=== PATIENT | male | born 1960 | race Caucasian/White ===

== ENCOUNTER 2023-10-21 09:07 | Observation (INO) ==
--- NOTE | 2023-10-21 09:49 | Emergency Department Note ---
History of Present Illness General Chief complaint: Back Injury/Pain Stated complaint: BACK PAIN Time Seen by Provider: 10/21/23 09:21 History of Present Illness Maximum Pain Intensity: 9 This is a 63-year-old male that presents to the emergency department via private vehicle with complaints of "right low back pain, spasms". 10 to 14 days ago he began with right-sided low back pain. Initially it was quite manageable. It does not radiate down the legs but he does note Patient notes chronic numbness/tingling in the lower extremities secondary to previous Achilles tendon surgery. He denies any known trauma or injury causing today's back pain. He does note that over the weekend he seemed well to manage his symptoms however he went to shower today and now the symptoms have been persistent and there is severe pain in the right low back area. The pain will escalate and come in waves but is always still present. The patient denies any fevers, chills or abdominal pain. No dysuria. No history of spine surgery. He does note history previously of spine injection about 15 years ago as performed in [facility]. He denies any known drug allergies. No lower extremity weakness, bowel or bladder incontinence, numbness or tingling in the genital region Home Medications Medication Instructions Recorded Confirmed Type cyclobenzaprine 5 mg tablet 5 - 10 mg (1 - 2 x 5 mg) PO HS #10 10/15/23 10/21/23 Rx tabs naproxen 500 mg tablet 500 mg PO BID PRN pain #14 tabs 10/15/23 10/21/23 Rx Allergies Allergy/AdvReac Type Severity Reaction Status Date / Time No Known Allergies Allergy Verified 10/21/23 09:53 Past Med/Surg History Problem List (Updated 10/21/23 @ 17:18 by Vik Thompson MD) Hepatic lesion Intractable back pain Elevated PSA Urinary frequency Anemia Medical History Spondylolisthesis Elevated PSA H/O sigmoidoscopy History of COVID-19 05/2021>RESOLVED Surgical History S/P Mohs surgery for basal cell carcinoma History of anesthesia reaction NERVE BLOCK DID NOT WORK FOR ACHILLES TENDON SURGERY History of arthroscopy LEFT KNEE H/O colonoscopy with polypectomy Hx of Achilles tendon repair RT History of prostate biopsy Family History Brother Skin cancer Colorectal cancer Father Skin cancer Lung cancer Mother Lung cancer Grandfather (Paternal) Lung cancer Other No family history of adverse response to anesthesia Denies family history of Ovarian cancer Prostate cancer Diabetes Myocardial infarction Breast cancer Stroke Social History Smoking Status: Never smoker Tobacco Type: Cigarettes Age Started Using Tobacco: 17; Age Quit Using Tobacco: 31; Second Hand Exposure: No ( A CHILD); Do You Dip or Chew Tobacco: No; Hx Alcohol Use: Yes Alcohol type: beer Alcohol Intake Frequency: 2-3 x/Week Hx Substance Use: No Preferred Language: Upper Sorbian Communication Ability: Effective Visual Impairment: Diminished Hearing Ability: Normal School Custodian Required: No Beliefs That Will Affect Care: None marital status: Current Living Situation: Spouse Current Living Situation Comment: spouse and son current occupational status: employed 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 How many Children do You have: 1 Feels Safe at Home: Yes Childhood Exposure to Second-Hand Smoke: Yes Diet: other Diet Comment: 16 and 8 Fasting caffeine: Yes Dental Care, Regularly: Yes Physical Activity Frequency: 5-6 Times per Week Physical Activity Frequency Comment: walk Seatbelt Use: always Sunscreen Use: Yes Assistive Devices: Glasses Review of Systems A total of 10 systems reviewed and were otherwise negative Physical Exam Vital Signs Vital Signs - 24 hr 10/21/23 09:17 10/21/23 10:05 10/21/23 10:11 Temperature 37.1 C Temperature Source Temporal Artery Scan Pulse Rate 63 60 58 L Pulse Rate [Apical] Pulse Rhythm Regular Respiratory Rate 18 16 Respiratory Effort / Characteristics Non-Labored Spontaneous Respiratory Depth Normal Blood Pressure 138/81 Blood Pressure [Left Arm] Blood Pressure Mean 100 Blood Pressure Mean [Left Arm] Blood Pressure Position Sitting Pulse Oximetry 98 99 Oxygen Delivery Method Room Air Room Air Sepsis Recent Fever Within 48 Hours No Sepsis New/Unexplained Change in Mental Status N/A Sepsis Action Taken by Nursing No Action Required 10/21/23 11:22 10/21/23 14:38 Temperature Temperature Source Pulse Rate Pulse Rate [Apical] 52 L 60 Pulse Rhythm Respiratory Rate 12 16 Respiratory Effort / Characteristics Respiratory Depth Blood Pressure Blood Pressure [Left Arm] 133/80 141/87 H Blood Pressure Mean Blood Pressure Mean [Left Arm] 97 105 Blood Pressure Position Pulse Oximetry 95 99 Oxygen Delivery Method Room Air Room Air Sepsis Recent Fever Within 48 Hours Sepsis New/Unexplained Change in Mental Status Sepsis Action Taken by Nursing VITAL SIGNS - Vital signs and nursing notes were reviewed. Stable and afebrile. GENERAL -63-year-old male appearing his stated age who is in no acute distress but appears to be in pain. Communicates well with provider and answers questions appropriately. SKIN - Without rashes. No meningeal or petechial rash. The skin overlying the L-spine area is unremarkable. No erythema or edema. No crepitus. HEAD - NC/AT. EYES - Sclera anicteric. NECK - Neck with FROM. No nuchal rigidity. LUNGS - CTA CARDIAC - RRR ABDOMEN - Abdominal contour normal without pulsations or visible masses. BS normoactive all four quadrants. No tenderness, palpable masses, hepatosplenomegaly, or ascites noted. MUSCULOSKELETALwithin normal limits bilateral patellar reflexes. Patient is able to push/pull against resistance with the lower extremities. Plantarflexion and dorsiflexion of bilateral ankles within normal limits actively. EXTREMITIES - No clubbing or peripheral cyanosis. +5/5 strength noted in UE/LE bilaterally. NEUROLOGIC - Cranial nerves grossly intact. PSYCH -alert, oriented and pleasant on exam. Pt is very pleasant and interacts well with examiner. Course Administered Medications Discontinued Medications Acetaminophen (Acetaminophen 500 Mg Tab) 1,000 mg PO NOW STA Stop: 10/21/23 14:25 Last Admin: 10/21/23 14:32 Dose: 1,000 mg Documented By: LA Dexamethasone (Dexamethasone Sod Inj 4 Mg/Ml Vial) 10 mg IV NOW STA Stop: 10/21/23 14:26 Last Admin: 10/21/23 14:33 Dose: Not Given Documented By: LA Diazepam (Diazepam 5 Mg/Ml 10ml Vial) 5 mg IV NOW STA Stop: 10/21/23 14:10 Last Admin: 10/21/23 15:06 Dose: 5 mg Documented By: LA Lidocaine (Lidocaine 5% 1 Patch) 1 patch TD NOW STA Stop: 10/21/23 09:48 Last Admin: 10/21/23 10:09 Dose: 1 patch Documented By: LA Morphine Sulfate (Morphine Sulfate 4 Mg/Ml 1 Ml Carp\\Vial) 4 mg IV NOW STA Stop: 10/21/23 09:48 Last Admin: 10/21/23 10:08 Dose: 4 mg Documented By: LA Morphine Sulfate (Morphine Sulfate 2 Mg/Ml Carp) 2 mg IV NOW STA Stop: 10/21/23 13:26 Last Admin: 10/21/23 13:33 Dose: 2 mg Documented By: LIZZIE Ondansetron HCl (Ondansetron Inj 2 Mg/Ml 2 Ml Vial) 4 mg IV NOW STA Stop: 10/21/23 09:48 Last Admin: 10/21/23 10:08 Dose: 4 mg Documented By: LA Medical Decision Making Laboratory Data 10/21/23 10:12 10/21/23 10:12 Lab Results 10/21/23 10/21/23 Range/Units 10:12 14:50 WBC 4.33 L (4.8-10.8) K/ul RBC 4.57 L (4.70-6.10) M/uL Hgb 14.0 (14.0-18.0) g/dl Hct 40.9 L (42.0-52.0) % MCV 89.5 (80.0-100.0) fL MCH 30.6 (25.0-34.0) pg MCHC 34.2 (32.0-36.0) g/dL RDW Std Deviation 43.6 (36.4-46.3) fL RDW Coeff of Elvira 13.2 (11.5-14.5) % Plt Count 171 (130-400) K/uL MPV 9.3 L (9.4-12.4) fL Immature Gran % (Auto) 0.0 % Neut % (Auto) 49.1 % Lymph % (Auto) 40.9 % [place] % (Auto) 8.3 % Eos % (Auto) 1.2 % Baso % (Auto) 0.5 % Neut # (Auto) 2.13 (1.40-6.50) K/uL Lymph # (Auto) 1.77 (1.20-3.40) K/uL [place] # (Auto) 0.36 (0.11-0.59) K/uL Eos # (Auto) 0.05 (0.00-0.50) K/uL Baso # (Auto) 0.02 (0.00-0.20) K/uL Immature Gran # (Auto) 0.00 L (0.01-0.20) K/uL Sodium 139 (136-145) mmol/L Potassium 4.4 (3.5-5.1) mmol/L Chloride 106 (98-107) mmol/L Carbon Dioxide 29 (21-32) mmol/L Anion Gap 4 (3-11) BUN 22 (6-23) mg/dl Creatinine 0.91 (0.6-1.4) mg/dl Est Cr Clr Drug Dosing 98.2 ml/min Est GFR ( Amer) 102.9 ml/min Est GFR (Non-Af Amer) 88.8 ml/min BUN/Creatinine Ratio 24.2 H (10-20) Glucose 97 (70-99(Fasting)) mg/dl Calcium 9.2 (8.6-10.3) mg/dl Total Bilirubin 0.7 (0.2-1.0) mg/dl AST 19 (13-39) U/L ALT 22 (7-52) U/L Alkaline Phosphatase 43 (34-104) U/L Total Protein 6.4 (6.0-8.3) gm/dl Albumin 4.2 (3.4-5.0) gm/dl Globulin 2.2 L (2.5-4.0) gm/dl Albumin/Globulin Ratio 1.9 (0.9-2) Carcinoembryonic Ag 0.9 (0-2.5) ng/ml Prostate Specific Ag 9.806 H (0-4) ng/ml Urine Color Yellow Urine Appearance Clear (Clear) Urine pH 7.0 (4.5-7.5) Ur Specific Sulphur 1.011 (1.000-1.030) Urine Protein Negative (Negative) Urine Glucose (UA) Negative (Negative) Urine Ketones Negative (Negative) Urine Blood Negative (Negative) Urine Nitrite Negative (Negative) Urine Bilirubin Negative (Negative) Urine Urobilinogen Negative (Negative) Ur Leukocyte Esterase 2+ H (Negative) Urine WBC (Auto) 6-10 H (0-5) /hpf Urine RBC (Auto) 0-2 (0-2) /hpf U Hyaline Cast (Auto) 0-2 (0-2) /lpf U Epithel Cells (Auto) 0-2 (0-2) /hpf Urine Bacteria (Auto) None Seen (None Seen) Imaging Data Radiologist's Impression: Abdomen/Pelvis CT 10/21/23 09:[address] WITHOUT CONTRAST HISTORY: Acute right-sided back pain R low back pain TECHNIQUE: Multiaxial CT images of the abdomen and pelvis were performed without contrast. A dose lowering technique was utilized adhering to the principles of ALARA. COMPARISON STUDY: Lumbar spine CT same day FINDINGS: Clear lung bases with mild bibasilar mucous plugging. No free air. The unenhanced spleen, mildly atrophic pancreas and adrenal glands are unremarkable. The gallbladder is within normal limits. Indeterminate hypodense left hepatic lobe mass on image 21 series 2 measures 7.5 cm. There is an additional 12 mm lesion of the right hepatic lobe on image 28. Bilateral renal sinus cysts. There is an exophytic parenchymal cyst of the superior pole right kidney measuring 4.9 cm. Bilateral perinephric stranding. Distended urinary bladder with mild nonspecific circumferential wall thickening. Prostatomegaly with indeterminate focus of decreased attenuation within the right base of the prostate (339 measuring 1.3 cm. No abdominal aortic aneurysm. Borderline enlarged periaortic and iliac chain lymph nodes measure up to 1 cm. Perirectal and presacral lymph nodes including a 1.3 x 1.0 cm lymph node on image 310. There is no bowel obstruction. There is wall thickening within the rectum with partial distention on image 343 series 3. There is mild colonic fecal retention. Normal appendix. Tiny fat filled umbilical hernia with diastases of 8 mm. No acute fracture. No destructive bone lesion identified. Chronic L5 pars defects. IMPRESSION: 1. No bowel obstruction or pneumoperitoneum. 2. Mild wall thickening with partial distention of the rectum could be correlated with colonoscopy to exclude a mucosal lesion. 3. There are suspicious borderline enlarged retroperitoneal, iliac chain and perirectal lymph nodes. Follow-up recommended in order to exclude lymphatic metastasis. 4. Prostamegaly with evidence of chronic outlet obstruction. Correlate with PSA level. 5. Indeterminate hepatic lesions measure up to 7.5 cm within the left hepatic lobe. ACT 112: Negative or not required by law. The above report was generated using voice recognition software. It may contain grammatical, syntax or spelling errors. Electronically signed by: Roberto Santiago M.D. 10/21/2023 12:[address] 10/21/23 09:47 CT lumbar spine wo con CLINICAL HISTORY: Right lower back pain. COMPARISON STUDY: No previous studies for comparison. TECHNIQUE: Axial images of the lumbar spine were obtained without IV contrast. Sagittal and coronal reconstructions were viewed. Automated exposure control was utilized for the study. A dose lowering technique was utilized adhering to the principles of ALARA. FINDINGS: Please note that the CT of the abdomen and pelvis will be reported separately. For purposes of numbering on this exam, the L5-S1 disc space is assigned to axial image 221 of 245. Vertebral body heights are maintained. There is slight anterolisthesis L5 on S1 due to bilateral L5 pars defects. There are no acute lumbar spine fractures. No osseous lesions are present. Facet joints are intact. Paravertebral soft tissues are unremarkable by CT. Bilateral renal parapelvic cysts are incidentally noted. There is a right renal cortical cyst. There is moderate disc space narrowing at L1-L2. There is moderate multilevel facet arthrosis. Central canal neural foramen are suboptimally assessed given CT technique. No evidence for severe central canal stenosis. IMPRESSION: 1. No lumbar spine fractures. 2. Moderate multilevel degenerative changes within the lumbar spine. Suboptimal evaluation of central canal and neural foramen given CT technique. 3. Slight anterolisthesis of L5 on S1 due to bilateral L5 pars defects. ACT 112: Negative or not required by law. Electronically signed by: Jono Keenan M.D. 10/21/2023 11:09 AM MDM Narrative Patient was seen and evaluated as above in room C09. Review was performed of triage nursing notes and vital signs. I did review pertinent previous visits and patient history. After obtaining a thorough history and physical examination the above work up was performed. Patient presents to us today for assessment of right low back pain. It does not radiate down the legs. The pain is always present but seems to come in waves in regard to spasms. I did attempt to ambulate the patient however there is severe pain in the right low back area even with simple movements while in the bed. He does not have any evidence of cauda equina syndrome at the present time. Options of care were discussed with the patient. IV access was established. Labs were drawn. There is leukopenia as well as decreased RBC and hematocrit. There is no evidence of kidney or liver failure. Mild elevation of BUN/creatinine ratio 24.2. Urinalysis reveals 2+ leukocytes and 6-10 white blood cells without any bacteria. I did order a urine culture to complement this abnormal finding. He denies any urinary symptoms. I did proceed with a CT scan of the abdomen/pelvis with L-spine recon imaging. This was without contrast. Results as above. I reviewed the findings with the patient. There is moderate multilevel generative changes within the lumbar spine. Slight anterior listhesis of L5 on S1 due to bilateral L5 pars defects. Certainly this may contribute to the patient's right-sided low back pain. Additionally, CT scan of the abdomen/pelvis as above does reveal abnormal findings. I reviewed these findings with the patient. Although much of these are likely incidental, they may also be contributory to his right low back pain. Patient was reevaluated post analgesic administration and I attempted to ambulate the patient throughout the room. Although he was able to ambulate, there is still significant pain in doing so particularly when the spasm was present about every 3 steps. Noting the persistence of pain at this time I do believe that further evaluation and management is warranted in the inpatient setting. I discussed patient case with the hospitalist service. He may benefit from additional studies such as MRI of the L-spine from another imaging which was ordered by the hospitalist service. Patient amenable to this plan. Please refer to further documentation regarding his stay. GCS: 15 In the evaluation and treatment of this patient the following differential diagnoses were entertained: Fracture, dislocation, subluxation, contusion, sprain, strain, UTI, pyelonephritis, malignancy, cauda equina syndrome, among others Impression & Plan Right low back pain, Abnormal computed tomography of abdomen and pelvis, Urine leukocytes increased, Enlarged prostate, Hepatic lesion Discharge Plan Visit Data Chief Complaint: Back Injury/Pain Stated Complaint: BACK PAIN ED Provider: Cody Knight ED Midlevel Provider: Srinivas Moon Discharge Problem: Right low back pain, Abnormal computed tomography of abdomen and pelvis, Urine leukocytes increased, Enlarged prostate, Hepatic lesion Patient Disposition: Admitted As Inpatient Condition: Good Discharge Instructions Interventions: ED Discharge Assessment Last Done: 10/21/23 16:24
[2023-10-21] MEDS: MoRPHine SULFATE 4 MG/ML 1 ML CARP\\VIAL IV STA (10:08)
[2023-10-21] MEDS: ONDANSETRON INJ 2 MG/ML 2 ML VIAL IV STA (10:08)
[2023-10-21] MEDS: LIDOCAINE 5% 1 PATCH TD STA (10:09)
[2023-10-21 10:30] LABS: Appearance Urine Clear (Clear); Bacteria Urine Automated None Seen (None Seen); Bilirubin Urine Negative (Negative); Blood Urine Negative (Negative); Cast Urine Automated 0-2 /lpf (0-2); Color Urine Yellow; Epithelial Cell Urine Auto 0-2 /hpf (0-2); Glucose Urine UA Negative (Negative); Ketones Urine Negative (Negative); Leukocyte Esterase Urine 2+ (Negative); Nitrite Urine Negative (Negative); Protein Urine Negative (Negative); RBC Urine Automated 0-2 /hpf (0-2); Specific Gravity Urine 1.011 (1.000-1.030); Urobilinogen Urine Negative (Negative)
[2023-10-21 10:35] LABS: Basophils # (auto) 0.02 K/uL (0.00-0.20); Basophils % (auto) 0.5 %; Eosinophils # (auto) 0.05 K/uL (0.00-0.50); Eosinophils % (auto) 1.2 %; Hematocrit (blood only) 40.9 % (42.0-52.0); Lymphocytes # (auto) 1.77 K/uL (1.20-3.40); Lymphocytes % (auto) 40.9 %; Mean Corpuscular Hemoglobin 30.6 pg (25.0-34.0); Mean Corpuscular Hgb Conc 34.2 g/dL (32.0-36.0); Mean Corpuscular Volume 89.5 fL (80.0-100.0); Mean Platelet Volume 9.3 fL (9.4-12.4); Monocytes # (auto) 0.36 K/uL (0.11-0.59); Monocytes % (auto) 8.3 %; Neutrophils # (auto) 2.13 K/uL (1.40-6.50); Neutrophils % (auto) 49.1 %; Platelet Count 171 K/uL (130-400); RDW Coefficient of Variation 13.2 % (11.5-14.5); RDW Standard Deviation 43.6 fL (36.4-46.3); Red Blood Count 4.57 M/uL (4.70-6.10); White Blood Count 4.33 K/ul (4.8-10.8)
[2023-10-21 10:45] LABS: Albumin Globulin Ratio 1.9 (0.9-2); Albumin Level 4.2 gm/dl (3.4-5.0); BUN Creatinine Ratio 24.2 (10-20); Bilirubin,Total 0.7 mg/dl (0.2-1.0); Calcium 9.2 mg/dl (8.6-10.3); Creatinine Clr Calc Pharmacy 98.2 ml/min; Est GFR (African American) 102.9 ml/min; Est GFR (Non-African American) 88.8 ml/min; Globulin 2.2 gm/dl (2.5-4.0); Potassium 4.4 mmol/L (3.5-5.1); Total Protein 6.4 gm/dl (6.0-8.3)
--- NOTE | 2023-10-21 11:11 | CT Scan Report ---
CT lumbar spine wo con CLINICAL HISTORY: Right lower back pain. COMPARISON STUDY: No previous studies for comparison. TECHNIQUE: Axial images of the lumbar spine were obtained without IV contrast. Sagittal and coronal r econstructions were viewed. Automated exposure control was utilized for the study. A dose lowering t echnique was utilized adhering to the principles of ALARA. FINDINGS: Please note that the CT of the abdomen and pelvis will be reported separately. For purposes of numbering on this exam, the L5-S1 disc space is assigned to axial image 221 of 245. Vertebral bod y heights are maintained. There is slight anterolisthesis L5 on S1 due to bilateral L5 pars defects. There are no acute lumbar spine fractures. No osseous lesions are present. Facet joints are intact. P aravertebral soft tissues are unremarkable by CT. Bilateral renal parapelvic cysts are incidentally n oted. There is a right renal cortical cyst. There is moderate disc space narrowing at L1-L2. There is moderate multilevel facet arthrosis. Central canal neural foramen are suboptimally assessed given CT technique. No evidence for severe central canal stenosis. IMPRESSION: 1. No lumbar spine fractures. 2. Moderate multilevel degenerative changes within the lumbar spine. Suboptimal evaluation of central canal and neural foramen given CT technique. 3. Slight anterolisthesis of L5 on S1 due to bilateral L5 pars defects. ACT 112: Negative or not required by law. Electronically signed by: Jono Keenan M.D. 10/21/2023 11:09 AM
--- NOTE | 2023-10-21 12:03 | CT Scan Report ---
ABDOMEN AND PELVIS CT WITHOUT CONTRAST HISTORY: Acute right-sided back pain R low back pain TECHNIQUE: Multiaxial CT images of the abdomen and pelvis were performed without contrast. A dose lo wering technique was utilized adhering to the principles of ALARA. COMPARISON STUDY: Lumbar spine CT same day FINDINGS: Clear lung bases with mild bibasilar mucous plugging. No free air. The unenhanced spleen, m ildly atrophic pancreas and adrenal glands are unremarkable. The gallbladder is within normal limits. Indeterminate hypodense left hepatic lobe mass on image 21 series 2 measures 7.5 cm. There is an add itional 12 mm lesion of the right hepatic lobe on image 28. Bilateral renal sinus cysts. There is an exophytic parenchymal cyst of the superior pole right kidney measuring 4.9 cm. Bilateral perinephric stranding. Distended urinary bladder with mild nonspecific c ircumferential wall thickening. Prostatomegaly with indeterminate focus of decreased attenuation with in the right base of the prostate (339 measuring 1.3 cm. No abdominal aortic aneurysm. Borderline enl arged periaortic and iliac chain lymph nodes measure up to 1 cm. Perirectal and presacral lymph nodes including a 1.3 x 1.0 cm lymph node on image 310. There is no bowel obstruction. There is wall thickening within the rectum with partial distention on image 343 series 3. There is mild colonic fecal retention. Normal appendix. Tiny fat filled umbilical hernia with diastases of 8 mm. No acute fracture. No destructive bone lesion identified. Chronic L5 pars defects. IMPRESSION: 1. No bowel obstruction or pneumoperitoneum. 2. Mild wall thickening with partial distention of the rectum could be correlated with colonoscopy to exclude a mucosal lesion. 3. There are suspicious borderline enlarged retroperitoneal, iliac chain and perirectal lymph nodes. Follow-up recommended in order to exclude lymphatic metastasis. 4. Prostamegaly with evidence of chronic outlet obstruction. Correlate with PSA level. 5. Indeterminate hepatic lesions measure up to 7.5 cm within the left hepatic lobe. ACT 112: Negative or not required by law. The above report was generated using voice recognition software. It may contain grammatical, syntax o r spelling errors. Electronically signed by: Roberto Santiago M.D. 10/21/2023 12:02 PM
[2023-10-21] MEDS: MoRPHine SULFATE 2 MG/ML CARP IV STA (13:33)
--- NOTE | 2023-10-21 14:04 | Hospitalist Consultation ---
Date of Consultation October 21, 2023 History of Present Illness History of Present Illness Took naproxen and no flexeril this morning as feels sleepy when he takes this. Allergies Allergy/AdvReac Type Severity Reaction Status Date / Time No Known Allergies Allergy Verified 10/21/23 09:53 Home Medications Medication Instructions Recorded Confirmed Type cyclobenzaprine 5 mg tablet 5 - 10 mg (1 - 2 x 5 mg) PO HS #10 10/15/23 10/21/23 Rx tabs naproxen 500 mg tablet 500 mg PO BID PRN pain #14 tabs 10/15/23 10/21/23 Rx Patient History Medical History (System 10/21/23 @ 09:53 by Judy Thomas) Spondylolisthesis Elevated PSA H/O sigmoidoscopy History of COVID-19 05/2021>RESOLVED Surgical History (System 10/21/23 @ 09:53 by Judy Thomas) S/P Mohs surgery for basal cell carcinoma History of anesthesia reaction NERVE BLOCK DID NOT WORK FOR ACHILLES TENDON SURGERY History of arthroscopy LEFT KNEE H/O colonoscopy with polypectomy Hx of Achilles tendon repair RT History of prostate biopsy Family History Brother Skin cancer Colorectal cancer Father Skin cancer Lung cancer Mother Lung cancer Grandfather (Paternal) Lung cancer Other No family history of adverse response to anesthesia Denies family history of Ovarian cancer Prostate cancer Diabetes Myocardial infarction Breast cancer Stroke Social History (System 10/21/23 @ 09:53 by Judy Tohmas) Smoking Status: Never smoker Tobacco Type: Cigarettes Age Started Using Tobacco: 17; Age Quit Using Tobacco: 31; Second Hand Exposure: No ( A CHILD); Do You Dip or Chew Tobacco: No; Hx Alcohol Use: Yes Alcohol type: beer Alcohol Intake Frequency: 2-3 x/Week Hx Substance Use: No Preferred Language: Czech Communication Ability: Effective Visual Impairment: Diminished Hearing Ability: Normal Installer Helper Required: No Beliefs That Will Affect Care: None marital status: Current Living Situation: Spouse Current Living Situation Comment: spouse and son current occupational status: employed current occupation: Technology Applications Teacher- time buyer How many Children do You have: 1 Feels Safe at Home: Yes Childhood Exposure to Second-Hand Smoke: Yes Diet: other Diet Comment: 16 and 8 Fasting caffeine: Yes Dental Care, Regularly: Yes Physical Activity Frequency: 5-6 Times per Week Physical Activity Frequency Comment: walk Seatbelt Use: always Sunscreen Use: Yes Assistive Devices: Glasses Results & Data Results & Data Vital Signs (Past 12 Hours) Vital Signs Temp Pulse Pulse Resp BP BP Pulse Ox 10/21/23 11:22 52 L 12 133/80 95 10/21/23 10:11 58 L 10/21/23 10:05 60 16 99 10/21/23 09:17 37.1 C 63 18 138/81 98 O2 Del Method 10/21/23 11:22 Room Air 10/21/23 10:11 10/21/23 10:05 Room Air 10/21/23 09:17 Room Air Laboratory Results Abnormal lab results 10/21/23 Range/Units 10:12 WBC 4.33 L (4.8-10.8) K/ul RBC 4.57 L (4.70-6.10) M/uL Hct 40.9 L (42.0-52.0) % MPV 9.3 L (9.4-12.4) fL Immature Gran # (Auto) 0.00 L (0.01-0.20) K/uL BUN/Creatinine Ratio 24.2 H (10-20) Globulin 2.2 L (2.5-4.0) gm/dl Ur Leukocyte Esterase 2+ H (Negative) Urine WBC (Auto) 6-10 H (0-5) /hpf PG Care Time/CCT Total # of Minutes Spent Total Time Spent with Patient: Total time spent is greater than 50% in coordination of care (as documented) at patient's floor/unit and/or counseling patient: Coding
[2023-10-21] MEDS: ACETAMINOPHEN 500 MG TAB PO STA (14:32)
[2023-10-21] MEDS: DEXAMETHASONE SOD INJ 4 MG/ML VIAL IV STA (14:33)
[2023-10-21] MEDS: diazePAM 5 MG/ML 10ML VIAL IV STA (15:06)
--- NOTE | 2023-10-21 15:19 | History & Physical Report ---
Date of Service October 21, 2023 Assessment & Plan (1) Spondylolysis: Plan: If muscle spasm present use diazepam 2mg PO q6h PRN prior to pain medications 1st line: Acetaminophen 1g PO TID 2nd line: Ibuprofen 400mg PO q4h PRN 3rd line: Oxycodone 5-10mg q4h PRN If no significant improvement consider steroids Suspected injury from repetitive lifting boxes Due to concern for metastatic disease on CT will get MRI lumbar spine with and without contrast to assess for metastatic bone disease PT/OT to eval safety for returning home (2) Intractable back pain: (3) Hepatic lesion: Plan: Discussed with Dr Robison (oncology, requested consult) and Amish Ahn (IR radiology) - plan for MRI liver protocol with contrast to make sure not hemangioma, will perform this as inpatient with plan for outpatient biopsy (assuming it is not an hemangioma) to be arranged once pain better controlled CEA (Mild wall thickening with partial distention of the rectum on CT) and PSA added to labs (4) Rectal abnormality: Plan: "Mild wall thickening with partial distention of the rectum on CT" Consider follow up with GI if liver biopsy not planned (5) Abnormal urinalysis: Plan: Asymptomatic Follow up urine culture Plan VTE Prophylaxis - Lovenox 40mg SQ daily Diet - regular Disposition - observation to med/surg Admission and Anticipated Discharge Date Admission Date: October 21, 2023 History of Present Illness Chief Complaint: Low back pain Primary Care Provider: Jann Thomas DO Alexander Vela is a 63 year old male who presents to the ER with lower back pain. He reports 2 weeks of slowly worsening lower back pain. He was seen by his PCP on October 14 and prescribed Flexeril and Naproxen. He reports the naproxen isn't helping much and the Flexeril makes him tired. The pain comes in waves with intense muscles spasms of his lower back. No radiation down his leg. No new numbness in his lower extremities. No significant trauma although he has been moving boxes. Previously it was intermittent with some respite but since coming out of the shower today it has been constant. He has had some relief from pain medications given in the ER but every time he moves he gets the pain back. Pain currently 5-6/10 but worse when he moves. CT was concerning for possible metastatic disease with indeterminate liver lesions. He is being followed by urology for elevated PSA with prior biopsies in 2021 negative for malignancy. Also of concern is mild rectal wall thickening however he denies any melena, hematochezia, rectal pain/fullness, weight loss or change in bowels. He had a colonoscopy in 2021 with only benign polyps found at that time. Urine analysis is positive for leucocyte esterase however he denies any urinary symptoms. Allergies Allergy/AdvReac Type Severity Reaction Status Date / Time No Known Allergies Allergy Verified 10/21/23 09:53 Home Medications Medication Instructions Recorded Confirmed Type cyclobenzaprine 5 mg tablet 5 - 10 mg (1 - 2 x 5 mg) PO HS #10 10/15/23 10/21/23 Rx tabs naproxen 500 mg tablet 500 mg PO BID PRN pain #14 tabs 10/15/23 10/21/23 Rx Past Med/Surg History Problem List (Updated 10/22/23 @ 06:53 by Vik Thompson MD) Abnormal urinalysis Rectal abnormality Spondylolysis Hepatic lesion Intractable back pain Elevated PSA Urinary frequency Anemia Medical History Spondylolisthesis Elevated PSA H/O sigmoidoscopy History of COVID-19 05/2021>RESOLVED Surgical History S/P Mohs surgery for basal cell carcinoma History of anesthesia reaction NERVE BLOCK DID NOT WORK FOR ACHILLES TENDON SURGERY History of arthroscopy LEFT KNEE H/O colonoscopy with polypectomy Hx of Achilles tendon repair RT History of prostate biopsy Family History Brother Skin cancer Colorectal cancer Father Skin cancer Lung cancer Mother Lung cancer Grandfather (Paternal) Lung cancer Other No family history of adverse response to anesthesia Denies family history of Ovarian cancer Prostate cancer Diabetes Myocardial infarction Breast cancer Stroke Social History Smoking Status: Never smoker Tobacco Type: Cigarettes Age Started Using Tobacco: 17; Age Quit Using Tobacco: 31; Second Hand Exposure: No ( A CHILD); Do You Dip or Chew Tobacco: No; Hx Alcohol Use: Yes Alcohol type: beer and hard liquor Alcohol Intake Frequency: 2-3 x/Week Hx Substance Use: No Preferred Language: Austrian Communication Ability: Effective Visual Impairment: Diminished Hearing Ability: Normal Guest Service Agent Required: No Beliefs That Will Affect Care: None marital status: Current Living Situation: Spouse Current Living Situation Comment: spouse and son current occupational status: employed current occupation: S[employer]- [employer] How many Children do You have: 1 Other Information That Helps Us Care for You: No Feels Safe at Home: Yes Safety Concerns: Feels Safe At This Time Childhood Exposure to Second-Hand Smoke: Yes Diet: other Diet Comment: 16 and 8 Fasting caffeine: Yes Dental Care, Regularly: Yes Physical Activity Frequency: 5-6 Times per Week Physical Activity Frequency Comment: walk Seatbelt Use: always Sunscreen Use: Yes Assistive Devices: Glasses Review of Systems Review of Systems: All systems reviewed & are unremarkable except as noted in HPI & below Physical Exam Constitutional: WD/WN, vitals as above ENMT: external ear and nose normal, oropharynx normal Respiratory: normal respiratory effort, lungs clear to auscultation Cardiovascular: RRR, no murmur, no edema Gastrointestinal (Abdomen): normal bowel sounds, soft, nontender, no hepatosplenomegaly Musculoskeletal: central and right paraspinal pain on palpation of lower lumbar spine hip flexion, ankle dorsi/plantarflexion intact, no sensory deficit of lower extremities Skin: no rashes, warm and dry Neurologic: moves all extremities and awake; not confused Psychiatric: A+Ox3, euthymic affect Results & Data Results & Data Vital Signs (Past 12 Hours) Vital Signs Temp Pulse Pulse Resp BP BP Pulse Ox 10/21/23 14:38 60 16 141/87 H 99 10/21/23 11:22 52 L 12 133/80 95 10/21/23 10:11 58 L 10/21/23 10:05 60 16 99 10/21/23 09:17 37.1 C 63 18 138/81 98 O2 Del Method 10/21/23 14:38 Room Air 10/21/23 11:22 Room Air 10/21/23 10:11 10/21/23 10:05 Room Air 10/21/23 09:17 Room Air Laboratory Results Abnormal lab results 10/21/23 Range/Units 10:12 WBC 4.33 L (4.8-10.8) K/ul RBC 4.57 L (4.70-6.10) M/uL Hct 40.9 L (42.0-52.0) % MPV 9.3 L (9.4-12.4) fL Immature Gran # (Auto) 0.00 L (0.01-0.20) K/uL BUN/Creatinine Ratio 24.2 H (10-20) Globulin 2.2 L (2.5-4.0) gm/dl Prostate Specific Ag 9.806 H (0-4) ng/ml Ur Leukocyte Esterase 2+ H (Negative) Urine WBC (Auto) 6-10 H (0-5) /hpf Diagnostic Findings CT lumbar spine wo con CLINICAL HISTORY: Right lower back pain. COMPARISON STUDY: No previous studies for comparison. TECHNIQUE: Axial images of the lumbar spine were obtained without IV contrast. Sagittal and coronal reconstructions were viewed. Automated exposure control was utilized for the study. A dose lowering technique was utilized adhering to the principles of ALARA. FINDINGS: Please note that the CT of the abdomen and pelvis will be reported separately. For purposes of numbering on this exam, the L5-S1 disc space is assigned to axial image 221 of 245. Vertebral body heights are maintained. There is slight anterolisthesis L5 on S1 due to bilateral L5 pars defects. There are no acute lumbar spine fractures. No osseous lesions are present. Facet joints are intact. Paravertebral soft tissues are unremarkable by CT. Bilateral renal parapelvic cysts are incidentally noted. There is a right renal cortical cyst. There is moderate disc space narrowing at L1-L2. There is moderate multilevel facet arthrosis. Central canal neural foramen are suboptimally assessed given CT technique. No evidence for severe central canal stenosis. IMPRESSION: 1. No lumbar spine fractures. 2. Moderate multilevel degenerative changes within the lumbar spine. Suboptimal evaluation of central canal and neural foramen given CT technique. 3. Slight anterolisthesis of L5 on S1 due to bilateral L5 pars defects. ABDOMEN AND PELVIS CT WITHOUT CONTRAST HISTORY: Acute right-sided back pain R low back pain TECHNIQUE: Multiaxial CT images of the abdomen and pelvis were performed without contrast. A dose lowering technique was utilized adhering to the principles of ALARA. COMPARISON STUDY: Lumbar spine CT same day FINDINGS: Clear lung bases with mild bibasilar mucous plugging. No free air. The unenhanced spleen, mildly atrophic pancreas and adrenal glands are unremarkable. The gallbladder is within normal limits. Indeterminate hypodense left hepatic lobe mass on image 21 series 2 measures 7.5 cm. There is an additional 12 mm lesion of the right hepatic lobe on image 28. Bilateral renal sinus cysts. There is an exophytic parenchymal cyst of the superior pole right kidney measuring 4.9 cm. Bilateral perinephric stranding. Distended urinary bladder with mild nonspecific circumferential wall thickening. Prostatomegaly with indeterminate focus of decreased attenuation within the right base of the prostate (339 measuring 1.3 cm. No abdominal aortic aneurysm. Borderline enlarged periaortic and iliac chain lymph nodes measure up to 1 cm. Perirectal and presacral lymph nodes including a 1.3 x 1.0 cm lymph node on image 310. There is no bowel obstruction. There is wall thickening within the rectum with partial distention on image 343 series 3. There is mild colonic fecal retention. Normal appendix. Tiny fat filled umbilical hernia with diastases of 8 mm. No acute fracture. No destructive bone lesion identified. Chronic L5 pars defects. IMPRESSION: 1. No bowel obstruction or pneumoperitoneum. 2. Mild wall thickening with partial distention of the rectum could be correlated with colonoscopy to exclude a mucosal lesion. 3. There are suspicious borderline enlarged retroperitoneal, iliac chain and perirectal lymph nodes. Follow-up recommended in order to exclude lymphatic metastasis. 4. Prostamegaly with evidence of chronic outlet obstruction. Correlate with PSA level. 5. Indeterminate hepatic lesions measure up to 7.5 cm within the left hepatic lobe. Medications Administered ER Medications Given: Morphine 4mg IV Ondansetron 4mg IV Lidocaine 5% patch Morphine 2mg IV Code Status & VTE Plan Code Status Full VTE Prophylaxis Plan VTE Prophylaxis will be ordered: Yes Critical Care Time Critical Care Time: Yes Total Critical Care Time: 75 PG Care Time/CCT Total # of Minutes Spent Total Time Spent with Patient: Total time spent is greater than 50% in coordination of care (as documented) at patient's floor/unit and/or counseling patient: Critical Care Time: Yes Total Critical Care Time: 75 Coding Level of Care Code 05249 INT INP/OBS CARE 75MIN Diagnoses Spondylolysis M43.00 Intractable back pain M54.9 Hepatic lesion K76.9 Rectal abnormality K62.9 Abnormal urinalysis R82.90 Additional Codes Critical Care Time - Critical Care Time: Yes ([id number])
[2023-10-21] MEDS ORDERED: oxyCODONE HCL IR 5 MG TAB (IMMEDIATE RELEASE) PO PRN ×2 (16:58)
[2023-10-21] MEDS ORDERED: IBUPROFEN 200 MG TAB PO PRN (16:58)
[2023-10-21] MEDS: diazePAM 2 MG TABLET PO PRN (18:00)
[2023-10-21] MEDS: GADOBUTROL 65ML VIAL IV ONE (18:55)
--- NOTE | 2023-10-21 19:08 | Oncology Consultation ---
Date of Consultation October 21, 2023 Assessment & Plan (1) Hepatic lesion: I had a discussion with the patient today, at this time my recommendation is getting an MRI of the abdomen. Once the results of the MRI of the abdomen are clear in that case we will decide whether the patient needs a liver biopsy. How ever my recommendation would be getting a biopsy of the liver lesion to understand the etiology of this cancer as well as it will give us the highest staging. Discussed this with my hospital internal medicine colleague, Dr. Vik Thompson Plan Medical oncology will continue to follow the patient and make appropriate History of Present Illness Reason for Consultation: ? Metastatic cancer liver metastatsis Attending Physician: Vik Thompson MD History of Present Illness the patient is a very pleasant 63-year-old gentleman who has been admitted to [facility] with intractable back pain. He started having pain a couple of weeks ago. On admission the patient had a CT of the abdomen and pelvis which revealed no bowel obstruction, mild wall thickening with partial distention of the rectum, suspicious borderline enlarged retroperitoneal, iliac chain and perirectal lymph nodes. There were concerns for metastatic prostate cancer. There was also an indeterminate hepatic lesion measuring up to 7.5 cm within the left hepatic lobe. Medical oncology has been consulted to assist in management of this patient with severe back pain, liver lesions, possible metastatic cancer. The patient is a resident of [place], is not losing weight. Reports no fever chills or night sweats. Reports no nausea vomiting. Allergies Allergy/AdvReac Type Severity Reaction Status Date / Time No Known Allergies Allergy Verified 10/21/23 09:53 Home Medications Medication Instructions Recorded Confirmed Type cyclobenzaprine 5 mg tablet 5 - 10 mg (1 - 2 x 5 mg) PO HS #10 10/15/23 10/21/23 Rx tabs naproxen 500 mg tablet 500 mg PO BID PRN pain #14 tabs 10/15/23 10/21/23 Rx Patient History Medical History Spondylolisthesis Elevated PSA H/O sigmoidoscopy History of COVID-19 05/2021>RESOLVED Surgical History S/P Mohs surgery for basal cell carcinoma History of anesthesia reaction NERVE BLOCK DID NOT WORK FOR ACHILLES TENDON SURGERY History of arthroscopy LEFT KNEE H/O colonoscopy with polypectomy Hx of Achilles tendon repair RT History of prostate biopsy Family History Brother Skin cancer Colorectal cancer Father Skin cancer Lung cancer Mother Lung cancer Grandfather (Paternal) Lung cancer Other No family history of adverse response to anesthesia Denies family history of Ovarian cancer Prostate cancer Diabetes Myocardial infarction Breast cancer Stroke Social History Smoking Status: Never smoker Tobacco Type: Cigarettes Age Started Using Tobacco: 17; Age Quit Using Tobacco: 31; Second Hand Exposure: No ( A CHILD); Do You Dip or Chew Tobacco: No; Hx Alcohol Use: Yes Alcohol type: beer and hard liquor Alcohol Intake Frequency: 2-3 x/Week Hx Substance Use: No Preferred Language: Nigerian Communication Ability: Effective Visual Impairment: Diminished Hearing Ability: Normal Instrumentation Manager Required: No Beliefs That Will Affect Care: None marital status: Current Living Situation: Spouse Current Living Situation Comment: spouse and son current occupational status: employed current occupation: Transplant Surgeon- multimedia artist How many Children do You have: 1 Other Information That Helps Us Care for You: No Feels Safe at Home: Yes Safety Concerns: Feels Safe At This Time Childhood Exposure to Second-Hand Smoke: Yes Diet: other Diet Comment: 16 and 8 Fasting caffeine: Yes Dental Care, Regularly: Yes Physical Activity Frequency: 5-6 Times per Week Physical Activity Frequency Comment: walk Seatbelt Use: always Sunscreen Use: Yes Assistive Devices: Glasses Review of Systems Review of Systems: All systems reviewed & are unremarkable except as noted in HPI & below Constitutional: as per Subjective / HPI Eyes: as per Subjective / HPI Ear, Nose, Mouth, Throat: as per Subjective / HPI Respiratory: as per Subjective / HPI Cardiovascular: as per Subjective / HPI Gastrointestinal: as per Subjective / HPI Genitourinary: + as per Subjective / HPI Musculoskeletal: as per Subjective / HPI Integumentary: as per Subjective / HPI Neurologic: as per Subjective / HPI Psychiatric: as per Subjective / HPI Endocrine: as per Subjective / HPI Hematologic / Lymphatic: as per Subjective / HPI Allergy / Immunological: as per Subjective / HPI Physical Exam Constitutional: WD/WN, vitals as above Eyes: PERRL, conjunctivae normal, anicteric sclerae ENMT: external ear and nose normal, oropharynx normal Neck: trachea midline, no thyromegaly Respiratory: normal respiratory effort, lungs clear to auscultation Cardiovascular: RRR, no murmur, no edema Gastrointestinal (Abdomen): normal bowel sounds, soft, nontender, no hepatosplenomegaly Musculoskeletal: no cyanosis or clubbing, extremities motor strength 5/5 Skin: no rashes, warm and dry Neurologic: patellar DTR's 2+ bilat, sensation intact Psychiatric: A+Ox3, euthymic affect Genitourinary: no testicular masses, no penis abnormality Lymphatic: no cervical or axillary lymphadenopathy Results & Data Vital Signs (Past 12 Hours) Vital Signs Temp Pulse Pulse Pulse Resp BP BP 10/21/23 16:50 36.8 C 58 L 16 115/65 10/21/23 16:24 10/21/23 16:00 74 18 120/71 10/21/23 14:38 60 16 141/87 H 10/21/23 11:22 52 L 12 133/80 10/21/23 10:11 58 L 10/21/23 10:05 60 16 10/21/23 09:17 37.1 C 63 18 138/81 Pulse Ox O2 Del Method 10/21/23 16:50 97 Room Air 10/21/23 16:24 Room Air 10/21/23 16:00 95 10/21/23 14:38 99 Room Air 10/21/23 11:22 95 Room Air 10/21/23 10:11 10/21/23 10:05 99 Room Air 10/21/23 09:17 98 Room Air
--- NOTE | 2023-10-21 20:16 | Magnetic Resonance Report ---
Exam(s): MRI L SPINE W/WO Contrast IV Amt: 10ml gadavist EXAM: MR Lumbar Spine Without and With Intravenous Contrast CLINICAL HISTORY: Reason for exam: ?metastatic disease. TECHNIQUE: Magnetic resonance images of the lumbar spine without and with intravenous contrast in multiple planes. CONTRAST: Patient received 10ml gadavist of IV contrast COMPARISON: CT lumbar spine 10/21/2023 FINDINGS: Vertebrae: No suspicious lesion. No acute fracture. Endplate degenerative related changes most pronounced at L1-L2. Spinal cord: Normal signal. No abnormal enhancement. Soft tissues: Unremarkable. DISCS/SPINAL CANAL/NEURAL FORAMINA: L1-L2: Disc desiccation and diffuse disc bulge. No significant canal stenosis. No significant foraminal stenosis.. L2-L3: Trace diffuse disc bulge. No spinal canal stenosis. Mild foraminal stenosis on the right. None on the left. L3-L4: Trace diffuse disc bulge. No canal stenosis. Mild foraminal stenosis on the right. None on the left. L4-L5: Unremarkable. No significant disc disease. No stenosis. L5-S1: Pars defects at L5. Trace anterolisthesis at L5-S1. No spinal canal stenosis. Mild foraminal stenosis on the left. None on the right. IMPRESSION: Mild degenerative spondylosis. No acute abnormality or evidence of metastatic disease. Electronically signed by: Reji Hooks MD 10/21/23 20:15 PM
[2023-10-21] MEDS: ACETAMINOPHEN 500 MG TAB PO SCH (22:09)
--- NOTE | 2023-10-22 06:57 | Communication Note ---
Date of Service: October 21, 2023 Discussed patient MRI result without evidence of metastatic disease therefore suspect just a stress fracture related to his moving boxes. Discussed brace wh ich he requests as the only thing he has found useful is when he stabilizes his back using his hand with pressure on his lumbar spine therefore LSO brace ordered.
[2023-10-22] MEDS: LIDOCAINE 5% 1 PATCH TD SCH (08:11)
--- NOTE | 2023-10-22 08:46 | Hospitalist Progress Note ---
Date of Service October 22, 2023 Assessment & Plan (1) Spondylolysis: Plan: If muscle spasm present use diazepam 2mg PO q6h PRN prior to pain medications 1st line: Acetaminophen 1g PO TID 2nd line: Ibuprofen 400mg PO q4h PRN 3rd line: Oxycodone 5-10mg q4h PRN If no significant improvement consider steroids Suspected injury from repetitive lifting boxes Due to concern for metastatic disease on CT will get MRI lumbar spine with and without contrast to assess for metastatic bone disease * Discussed patient MRI result without evidence of metastatic disease therefore suspect just a stress fracture related to his moving boxes. * Discussed brace which he requests as the only thing he has found useful is when he stabilizes his back using his hand with pressure on his lumbar spine therefore LSO brace ordered. MRI abdomen pending, liver protocol to ensure not hemangioma. PT/OT to eval safety for returning home 10/21 Patient reports feeling 50% better already by today Continues on tylenol scheduled, prn ibuprofen/oxycodone-monitor for need for steroids if any need/worsening Orthotics consulted, no brace yet but should be delivered today Awaiting MRI liver for this morning, dedicated study. Made NPO for the study this morning/IVF while NPO for 500cc NSS total/diet once MRI complete. LFTs wnl, INR CEA level checked, NOT elevated (reports his last c-scope w/ benign polyp ~2021 but on 3-5yr schedule due to hx diverticulosis/polyps reported by patient) PSA lev elevated 9.8 (less than 11 earlier this summer) and reports routine surveillance/biopsies w/ urology Initially planning for outpatient biopsy (assuming not hemangioma), MRI resulted w "7.6 x 6.2 cm T2 hyperintense lesion within the left hepatic lobe is consistent with a hemangioma. There is an additional 11 mm T2 hyperintense lesion within the right hepatic lobe. This is difficult to characterize due to its small size but may represent a flash filling hemangioma. One year follow-up can be performed to ensure stability." <Messaged Dr Robison, will discuss w/ patient this afternoon PT/OT consults pending Labs in AM, INR added (2) Hepatic lesion: Plan: Discussed with Dr Robison (oncology, requested consult) and Amish Ahn (IR radiology) on admission and planned for MRI liver protocol as above to make sure not hemangioma as above, however MRI noting 7.6cm x 6.2cm LEFT hepatic lobe lesion c/w hemangioma w/ additional lesions in R hepatic lobe too small to characterize but may represent flash filling hemangioma CEA not elevated (Mild wall thickening with partial distention of the rectum on CT -- per patient, has had routine c-scopes, last in 2021, will need updated) PSA elevated as above Heme/onc consulted as above and to have further discussions for today regarding plan, possible IR/biopsy while inpatient. Will add INR to AM labs as not checked on admission (3) Intractable back pain: Plan: improving with above, however suspect 2nd to carcinoma as well tx as outlined (4) Rectal abnormality: Plan: "Mild wall thickening with partial distention of the rectum on CT". CEA not elevated. Pending eval/plan for liver lesion as above, hematology/oncology consulted. Has been followed by GI w/ routine c-scopes outpatient as outlined but may need repeat pending biopsy results/plan as above (5) Abnormal urinalysis: Plan: Asymptomatic Follow up urine culture Plan VTE Prophylaxis - Lovenox 40mg SQ daily for now continued inpatient stay PT/OT consults pending Admission and Anticipated Discharge Date Admission Date: October 21, 2023 Subjective Patient evaluated this morning, resting in bed. Reports he got up to brush his teeth today, pain 2/10 at rest, reports up to 6 w/ ambulation and reports it was a 9/10 yesterday and he reports 50% improvement. He notes the majority of the pain is when he is in a seated position and standing up/straightening of his spine. Improvement in pressure when pressing on lower back. He has not gotten the brace yet but discussed when to wear, will see therapy evals to see if able to make improvements for home/HHPT vs outpt PT however does have multiple steps/stairs and did discuss rehab pending therapy evenrique. Is NPO for MRI liver protocol, discussed CEA level not elevated. He has had increased c-scope schedule, last in 2021 for some polyps which were benign but also hx diverticulosis he notes. No blood in stool/weight loss/night sweats. No fever/chills, chest pain/shortness of breath. Urine cx pending but no fever/holding off on any abx at this time. Passing gas but no BM, last bowel movement yesterday. Adding IVF while NPO for MRI study but will order diet following. Does appear slightly dry on exam. Labs added/pending. Physical Exam Physical Exam: General: 63yo male sitting up in bed, NAD, reports feeling better than admission Head atraumatic, normocephalic, trachea midline, mm DRY Resp: even/unlabored, no w/c/r, on room air CV: NSR/evelia, no significant m/r/g, no pitting edema, pulses present GI: +BS, slight distension but soft/nontender MSK/Neuro: nonfocal, strength equal bilaterally in bed (reports difficulty getting from sitting to standing position) Psych: AOx3, cooperative with exam Results & Data Results & Data Vital Signs (Past 12 Hours) Vital Signs Temp Pulse Resp BP Pulse Ox O2 Del Method 10/22/23 07:06 36.8 C 52 L 14 115/62 96 Room Air Laboratory Results 10/21/23 10/21/23 Range/Units 14:50 10:12 WBC 4.33 L (4.8-10.8) K/ul RBC 4.57 L (4.70-6.10) M/uL Hgb 14.0 (14.0-18.0) g/dl Hct 40.9 L (42.0-52.0) % MCV 89.5 (80.0-100.0) fL MCH 30.6 (25.0-34.0) pg MCHC 34.2 (32.0-36.0) g/dL RDW Std Deviation 43.6 (36.4-46.3) fL RDW Coeff of [place] 13.2 (11.5-14.5) % Plt Count 171 (130-400) K/uL MPV 9.3 L (9.4-12.4) fL Immature Gran % (Auto) 0.0 % Neut % (Auto) 49.1 % Lymph % (Auto) 40.9 % [place] % (Auto) 8.3 % Eos % (Auto) 1.2 % Baso % (Auto) 0.5 % Neut # (Auto) 2.13 (1.40-6.50) K/uL Lymph # (Auto) 1.77 (1.20-3.40) K/uL [place] # (Auto) 0.36 (0.11-0.59) K/uL Eos # (Auto) 0.05 (0.00-0.50) K/uL Baso # (Auto) 0.02 (0.00-0.20) K/uL Immature Gran # (Auto) 0.00 L (0.01-0.20) K/uL Sodium 139 (136-145) mmol/L Potassium 4.4 (3.5-5.1) mmol/L Chloride 106 (98-107) mmol/L Carbon Dioxide 29 (21-32) mmol/L Anion Gap 4 (3-11) BUN 22 (6-23) mg/dl Creatinine 0.91 (0.6-1.4) mg/dl Est Cr Clr Drug Dosing 98.2 ml/min Est GFR ( Amer) 102.9 ml/min Est GFR (Non-Af Amer) 88.8 ml/min BUN/Creatinine Ratio 24.2 H (10-20) Glucose 97 (70-99(Fasting)) mg/dl Calcium 9.2 (8.6-10.3) mg/dl Total Bilirubin 0.7 (0.2-1.0) mg/dl AST 19 (13-39) U/L ALT 22 (7-52) U/L Alkaline Phosphatase 43 (34-104) U/L Total Protein 6.4 (6.0-8.3) gm/dl Albumin 4.2 (3.4-5.0) gm/dl Globulin 2.2 L (2.5-4.0) gm/dl Albumin/Globulin Ratio 1.9 (0.9-2) Carcinoembryonic Ag 0.9 (0-2.5) ng/ml Prostate Specific Ag 9.806 H (0-4) ng/ml Urine Color Yellow Urine Appearance Clear (Clear) Urine pH 7.0 (4.5-7.5) Ur Specific [place] 1.011 (1.000-1.030) Urine Protein Negative (Negative) Urine Glucose (UA) Negative (Negative) Urine Ketones Negative (Negative) Urine Blood Negative (Negative) Urine Nitrite Negative (Negative) Urine Bilirubin Negative (Negative) Urine Urobilinogen Negative (Negative) Ur Leukocyte Esterase 2+ H (Negative) Urine WBC (Auto) 6-10 H (0-5) /hpf Urine RBC (Auto) 0-2 (0-2) /hpf U Hyaline Cast (Auto) 0-2 (0-2) /lpf U Epithel Cells (Auto) 0-2 (0-2) /hpf Urine Bacteria (Auto) None Seen (None Seen) Diagnostic Findings Abdomen/Pelvis CT 10/21/23 09:[address] WITHOUT CONTRAST HISTORY: Acute right-sided back pain R low back pain TECHNIQUE: Multiaxial CT images of the abdomen and pelvis were performed without contrast. A dose lowering technique was utilized adhering to the principles of ALARA. COMPARISON STUDY: Lumbar spine CT same day FINDINGS: Clear lung bases with mild bibasilar mucous plugging. No free air. The unenhanced spleen, mildly atrophic pancreas and adrenal glands are unremarkable. The gallbladder is within normal limits. Indeterminate hypodense left hepatic lobe mass on image 21 series 2 measures 7.5 cm. There is an additional 12 mm lesion of the right hepatic lobe on image 28. Bilateral renal sinus cysts. There is an exophytic parenchymal cyst of the superior pole right kidney measuring 4.9 cm. Bilateral perinephric stranding. Distended urinary bladder with mild nonspecific circumferential wall thickening. Prostatomegaly with indeterminate focus of decreased attenuation within the right base of the prostate (339 measuring 1.3 cm. No abdominal aortic aneurysm. Borderline enlarged periaortic and iliac chain lymph nodes measure up to 1 cm. Perirectal and presacral lymph nodes including a 1.3 x 1.0 cm lymph node on image 310. There is no bowel obstruction. There is wall thickening within the rectum with partial distention on image 343 series 3. There is mild colonic fecal retention. Normal appendix. Tiny fat filled umbilical hernia with diastases of 8 mm. No acute fracture. No destructive bone lesion identified. Chronic L5 pars defects. IMPRESSION: 1. No bowel obstruction or pneumoperitoneum. 2. Mild wall thickening with partial distention of the rectum could be correlated with colonoscopy to exclude a mucosal lesion. 3. There are suspicious borderline enlarged retroperitoneal, iliac chain and perirectal lymph nodes. Follow-up recommended in order to exclude lymphatic metastasis. 4. Prostamegaly with evidence of chronic outlet obstruction. Correlate with PSA level. 5. Indeterminate hepatic lesions measure up to 7.5 cm within the left hepatic lobe. ACT 112: Negative or not required by law. The above report was generated using voice recognition software. It may contain grammatical, syntax or spelling errors. Electronically signed by: Roberto Santiago M.D. 10/21/2023 12:[address] 10/21/23 09:47 CT lumbar spine wo con CLINICAL HISTORY: Right lower back pain. COMPARISON STUDY: No previous studies for comparison. TECHNIQUE: Axial images of the lumbar spine were obtained without IV contrast. Sagittal and coronal reconstructions were viewed. Automated exposure control was utilized for the study. A dose lowering technique was utilized adhering to the principles of ALARA. FINDINGS: Please note that the CT of the abdomen and pelvis will be reported separately. For purposes of numbering on this exam, the L5-S1 disc space is assigned to axial image 221 of 245. Vertebral body heights are maintained. There is slight anterolisthesis L5 on S1 due to bilateral L5 pars defects. There are no acute lumbar spine fractures. No osseous lesions are present. Facet joints are intact. Paravertebral soft tissues are unremarkable by CT. Bilateral renal parapelvic cysts are incidentally noted. There is a right renal cortical cyst. There is moderate disc space narrowing at L1-L2. There is moderate multilevel facet arthrosis. Central canal neural foramen are suboptimally assessed given CT technique. No evidence for severe central canal stenosis. IMPRESSION: 1. No lumbar spine fractures. 2. Moderate multilevel degenerative changes within the lumbar spine. Suboptimal evaluation of central canal and neural foramen given CT technique. 3. Slight anterolisthesis of L5 on S1 due to bilateral L5 pars defects. ACT 112: Negative or not required by law. Electronically signed by: Jono Keenan M.D. 10/21/2023 11:09 AM Lumbar Spine MRI 10/21/23 14:09 Exam(s): MRI L SPINE W/WO Contrast IV Amt: 10ml gadavist EXAM: MR Lumbar Spine Without and With Intravenous Contrast CLINICAL HISTORY: Reason for exam: ?metastatic disease. TECHNIQUE: Magnetic resonance images of the lumbar spine without and with intravenous contrast in multiple planes. CONTRAST: Patient received 10ml gadavist of IV contrast COMPARISON: CT lumbar spine 10/21/2023 FINDINGS: Vertebrae: No suspicious lesion. No acute fracture. Endplate degenerative related changes most pronounced at L1-L2. Spinal cord: Normal signal. No abnormal enhancement. Soft tissues: Unremarkable. DISCS/SPINAL CANAL/NEURAL FORAMINA: L1-L2: Disc desiccation and diffuse disc bulge. No significant canal stenosis. No significant foraminal stenosis.. L2-L3: Trace diffuse disc bulge. No spinal canal stenosis. Mild foraminal stenosis on the right. None on the left. L3-L4: Trace diffuse disc bulge. No canal stenosis. Mild foraminal stenosis on the right. None on the left. L4-L5: Unremarkable. No significant disc disease. No stenosis. L5-S1: Pars defects at L5. Trace anterolisthesis at L5-S1. No spinal canal stenosis. Mild foraminal stenosis on the left. None on the right. IMPRESSION: Mild degenerative spondylosis. No acute abnormality or evidence of metastatic disease. Electronically signed by: Reji Hooks MD 10/21/23 20:15 PM Abdomen MRI 10/22/23 00:00 MR abdomen wo/w con HISTORY: Follow-up liver lesions. liver lesion/protocol, requested by Amish Ahn TECHNIQUE: Multiplanar multisequence MRI of the abdomen was performed both before and after the intravenous administration of 10 cc of Eovist contrast to evaluate the liver. COMPARISON STUDY: Abdomen and pelvis CT 10/21/2023. FINDINGS: The lung bases are clear. The visualized loops of bowel show no wall thickening or obstruction. Normal caliber abdominal aorta. No retroperitoneal lymphadenopathy. The main portal vein is patent. The gallbladder, pancreas, spleen, and adrenal glands are unremarkable. Multiple bilateral peripelvic renal cysts are again noted. There are few bilateral renal cysts with the largest on the right measuring 4.9 cm. No hydronephrosis. Mild bilateral perinephric edema, unchanged. This is likely chronic. No suspicious osseous lesions. Normal caliber common bile duct. No filling defects within the common bile duct. There is a 7.6 x 6.2 cm T2 hyperintense, T1 hypointense lesion within the left hepatic lobe. This demonstrates discontinuous peripheral nodular enhancement with delayed filling. Therefore, this is consistent with a hemangioma. There is also an 11 mm T2 hyperintense, T1 hypointense lesion within segment 7 of the liver. This demonstrates hypervascular enhancement with complete washout on the 20 minute delayed sequences. This is difficult to characterize due to its small size but favors a flash filling hemangioma. No additional hepatic lesions identified. IMPRESSION: 1. The 7.6 x 6.2 cm T2 hyperintense lesion within the left hepatic lobe is consistent with a hemangioma. 2. There is an additional 11 mm T2 hyperintense lesion within the right hepatic lobe. This is difficult to characterize due to its small size but may represent a flash filling hemangioma. One year follow-up can be performed to ensure stability. 3. Additional findings as described above. ACT 112: Negative or not required by law. Electronically signed by: Omega Church M.D. 10/22/2023 12:37 PM PG Care Time/CCT Total # of Minutes Spent Total Time Spent with Patient: Total time spent is greater than 50% in coordination of care (as documented) at patient's floor/unit and/or counseling patient: Coding Level of Care Code 32911 SUB INP/OBS CARE 3/50MIN Diagnoses Spondylolysis M43.00 Hepatic lesion K76.9 Intractable back pain M54.9 Rectal abnormality K62.9 Abnormal urinalysis R82.90
[2023-10-22] MEDS: SODIUM CHLORIDE 0.9% 500 ML IV SCH (10:14)
[2023-10-22] MEDS ORDERED: diazePAM 5 MG/ML 10ML VIAL IV STA (11:03)
[2023-10-22 11:16] LABS: Basophils # (auto) 0.01 K/uL (0.00-0.20); Basophils % (auto) 0.2 %; Eosinophils # (auto) 0.04 K/uL (0.00-0.50); Eosinophils % (auto) 0.9 %; Hematocrit (blood only) 39.6 % (42.0-52.0); Hemoglobin 13.4 g/dl (14.0-18.0); Immature Granulocytes # (auto) 0.01 K/uL (0.01-0.20); Immature Granulocytes % (auto) 0.2 %; Lymphocytes % (auto) 41.9 %; Mean Corpuscular Hgb Conc 33.8 g/dL (32.0-36.0); Mean Corpuscular Volume 88.8 fL (80.0-100.0); Mean Platelet Volume 9.3 fL (9.4-12.4); Monocytes # (auto) 0.31 K/uL (0.11-0.59); Monocytes % (auto) 6.8 %; Neutrophils # (auto) 2.27 K/uL (1.40-6.50); Platelet Count 166 K/uL (130-400); RDW Coefficient of Variation 13.3 % (11.5-14.5); RDW Standard Deviation 43.2 fL (36.4-46.3); Red Blood Count 4.46 M/uL (4.70-6.10); White Blood Count 4.54 K/ul (4.8-10.8)
[2023-10-22 11:23] LABS: BUN Creatinine Ratio 28.2 (10-20); Calcium 8.8 mg/dl (8.6-10.3); Creatinine Clr Calc Pharmacy 105.2 ml/min; Est GFR (African American) 106.7 ml/min; Est GFR (Non-African American) 92.1 ml/min; Magnesium 1.9 mg/dl (1.7-2.4); Potassium 4.3 mmol/L (3.5-5.1)
[2023-10-22] MEDS: GADOXETATE DISODIUM IV ONE (11:55)
--- NOTE | 2023-10-22 12:39 | Magnetic Resonance Report ---
MR abdomen wo/w con HISTORY: Follow-up liver lesions. liver lesion/protocol, requested by Amish Ahn TECHNIQUE: Multiplanar multisequence MRI of the abdomen was performed both before and after the intra venous administration of 10 cc of Eovist contrast to evaluate the liver. COMPARISON STUDY: Abdomen and pelvis CT 10/21/2023. FINDINGS: The lung bases are clear. The visualized loops of bowel show no wall thickening or obstruct ion. Normal caliber abdominal aorta. No retroperitoneal lymphadenopathy. The main portal vein is handy nt. The gallbladder, pancreas, spleen, and adrenal glands are unremarkable. Multiple bilateral peripe lvic renal cysts are again noted. There are few bilateral renal cysts with the largest on the right m easuring 4.9 cm. No hydronephrosis. Mild bilateral perinephric edema, unchanged. This is likely chron ic. No suspicious osseous lesions. Normal caliber common bile duct. No filling defects within the com mon bile duct. There is a 7.6 x 6.2 cm T2 hyperintense, T1 hypointense lesion within the left hepatic lobe. This demonstrates discontinuous peripheral nodular enhancement with delayed filling. Therefore , this is consistent with a hemangioma. There is also an 11 mm T2 hyperintense, T1 hypointense lesion within segment 7 of the liver. This demonstrates hypervascular enhancement with complete washout on the 20 minute delayed sequences. This is difficult to characterize due to its small size but favors a flash filling hemangioma. No additional hepatic lesions identified. IMPRESSION: 1. The 7.6 x 6.2 cm T2 hyperintense lesion within the left hepatic lobe is consistent with a hemangio ma. 2. There is an additional 11 mm T2 hyperintense lesion within the right hepatic lobe. This is difficu lt to characterize due to its small size but may represent a flash filling hemangioma. One year follo w-up can be performed to ensure stability. 3. Additional findings as described above. ACT 112: Negative or not required by law. Electronically signed by: Omega Church M.D. 10/22/2023 12:37 PM
--- NOTE | 2023-10-22 17:49 | Hematology/Oncology Prog Note ---
Date of Service October 22, 2023 Assessment & Plan (1) Hepatic lesion: Plan: MRI of the abdomen has been reviewed. It seems that the patient has hemangiomas In the liver with no specific area to be Biopsy directly. The patient has multiple retroperitoneal, iliac chain and perirectal lymph nodes, that will need follow-up independently and we can do subsequent imaging as well as GI evaluation on an outpatient basis if the patient is discharged. Plan Thank you for this interesting oncological consult. Medical oncology will continue to follow the patient. Admission and Anticipated Discharge Date Admission Date: October 21, 2023 Subjective This morning the patient is doing very well. Reports no abdominal pain, fever or chills. Overall the patient is Review of Systems Review of Systems: All systems reviewed & are unremarkable except as noted in HPI & below Constitutional: as per Subjective / HPI Eyes: as per Subjective / HPI Ear, Nose, Mouth, Throat: as per Subjective / HPI Respiratory: as per Subjective / HPI Cardiovascular: as per Subjective / HPI Gastrointestinal: as per Subjective / HPI Genitourinary: + as per Subjective / HPI Musculoskeletal: as per Subjective / HPI Integumentary: as per Subjective / HPI Neurologic: as per Subjective / HPI Psychiatric: as per Subjective / HPI Endocrine: as per Subjective / HPI Hematologic / Lymphatic: as per Subjective / HPI Allergy / Immunological: as per Subjective / HPI Physical Exam Constitutional: WD/WN, vitals as above Eyes: PERRL, conjunctivae normal, anicteric sclerae ENMT: external ear and nose normal, oropharynx normal Neck: trachea midline, no thyromegaly Respiratory: normal respiratory effort, lungs clear to auscultation Cardiovascular: RRR, no murmur, no edema Gastrointestinal (Abdomen): normal bowel sounds, soft, nontender, no hepatosplenomegaly Musculoskeletal: no cyanosis or clubbing, extremities motor strength 5/5 Skin: no rashes, warm and dry Neurologic: patellar DTR's 2+ bilat, sensation intact Psychiatric: A+Ox3, euthymic affect Genitourinary: no testicular masses, no penis abnormality Results & Data Vital Signs (Past 12 Hours) Vital Signs Temp Pulse Resp BP Pulse Ox O2 Del Method 10/22/23 15:23 36.6 C 57 L 18 129/82 97 Room Air 10/22/23 07:06 36.8 C 52 L 14 115/62 96 Room Air
[2023-10-22] MEDS: ENOXAPARIN INJ 40 MG/0.4 ML SYR SQ SCH (20:58)
[2023-10-23 07:25] LABS: Hematocrit (blood only) 41.9 % (42.0-52.0); Hemoglobin 14.5 g/dl (14.0-18.0); Mean Corpuscular Hemoglobin 30.5 pg (25.0-34.0); Mean Corpuscular Hgb Conc 34.6 g/dL (32.0-36.0); Mean Corpuscular Volume 88.2 fL (80.0-100.0); Platelet Count 191 K/uL (130-400); RDW Coefficient of Variation 13.2 % (11.5-14.5); RDW Standard Deviation 42.7 fL (36.4-46.3); Red Blood Count 4.75 M/uL (4.70-6.10); White Blood Count 5.82 K/ul (4.8-10.8)
[2023-10-23 07:42] LABS: Albumin Globulin Ratio 1.8 (0.9-2); Albumin Level 4.2 gm/dl (3.4-5.0); BUN Creatinine Ratio 21.3 (10-20); Bilirubin,Total 0.8 mg/dl (0.2-1.0); Calcium 9.1 mg/dl (8.6-10.3); Creatinine Clr Calc Pharmacy 95.1 ml/min; Est GFR (African American) 98.9 ml/min; Est GFR (Non-African American) 85.3 ml/min; Globulin 2.4 gm/dl (2.5-4.0); Total Protein 6.6 gm/dl (6.0-8.3)
[2023-10-23 07:55] LABS: Basophils # (auto) 0.02 K/uL (0.00-0.20); Basophils % (auto) 0.3 %; Eosinophils # (auto) 0.09 K/uL (0.00-0.50); Eosinophils % (auto) 1.5 %; Lymphocytes # (auto) 3.16 K/uL (1.20-3.40); Lymphocytes % (auto) 54.3 %; Monocytes % (auto) 6.9 %; Neutrophils # (auto) 2.15 K/uL (1.40-6.50)
[2023-10-23 08:11] LABS: Prothrombin Time 10.5 Seconds (9.0-12.0)
--- NOTE | 2023-10-23 09:10 | Hospitalist Progress Note ---
Date of Service October 23, 2023 Assessment & Plan (1) Spondylolysis: Plan: If muscle spasm present use diazepam 2mg PO q6h PRN prior to pain medications 1st line: Acetaminophen 1g PO TID 2nd line: Ibuprofen 400mg PO q4h PRN 3rd line: Oxycodone 5-10mg q4h PRN If no significant improvement consider steroids Suspected injury from repetitive lifting boxes Due to concern for metastatic disease on CT will get MRI lumbar spine with and without contrast to assess for metastatic bone disease * Discussed patient MRI result without evidence of metastatic disease therefore suspect just a stress fracture related to his moving boxes. * Discussed brace which he requests as the only thing he has found useful is when he stabilizes his back using his hand with pressure on his lumbar spine therefore LSO brace ordered. MRI abdomen pending, liver protocol to ensure not hemangioma. PT/OT to eval safety for returning home 10/21 Patient reports feeling 50% better already by today Continues on tylenol scheduled, prn ibuprofen/oxycodone-monitor for need for steroids if any need/worsening Orthotics consulted, no brace yet but should be delivered today Awaiting MRI liver for this morning, dedicated study. Made NPO for the study this morning/IVF while NPO for 500cc NSS total/diet once MRI complete. LFTs wnl, INR CEA level checked, NOT elevated (reports his last c-scope w/ benign polyp ~2021 but on 3-5yr schedule due to hx diverticulosis/polyps reported by patient) PSA lev elevated 9.8 (less than 11 earlier this summer) and reports routine surveillance/biopsies w/ urology Initially planning for outpatient biopsy (assuming not hemangioma), MRI resulted w "7.6 x 6.2 cm T2 hyperintense lesion within the left hepatic lobe is consistent with a hemangioma. There is an additional 11 mm T2 hyperintense lesion within the right hepatic lobe. This is difficult to characterize due to its small size but may represent a flash filling hemangioma. One year follow-up can be performed to ensure stability." <Messaged Dr Robison, will discuss w/ patient this afternoon PT/OT consults pending Labs in AM, INR added (2) Hepatic lesion: Plan: Discussed with Dr Robison (oncology, requested consult) and Amish Ahn (IR radiology) on admission and planned for MRI liver protocol as above to make sure not hemangioma as above, however MRI noting 7.6cm x 6.2cm LEFT hepatic lobe lesion c/w hemangioma w/ additional lesions in R hepatic lobe too small to characterize but may represent flash filling hemangioma CEA not elevated (Mild wall thickening with partial distention of the rectum on CT -- per patient, has had routine c-scopes, last in 2021, will need updated) PSA elevated as above Heme/onc consulted as above and to have further discussions for today regarding plan, possible IR/biopsy while inpatient. Will add INR to AM labs as not checked on admission (3) Intractable back pain: Plan: improving with above, however suspect 2nd to carcinoma as well tx as outlined (4) Rectal abnormality: Plan: "Mild wall thickening with partial distention of the rectum on CT". CEA not elevated. Pending eval/plan for liver lesion as above, hematology/oncology consulted. Has been followed by GI w/ routine c-scopes outpatient as outlined but may need repeat pending biopsy results/plan as above (5) Abnormal urinalysis: Plan: Asymptomatic Follow up urine culture Plan VTE Prophylaxis - Lovenox 40mg SQ daily for now continued inpatient stay PT/OT consults pending Admission and Anticipated Discharge Date Admission Date: October 21, 2023 Results & Data Results & Data Vital Signs (Past 12 Hours) Vital Signs Temp Pulse Resp BP Pulse Ox O2 Del Method 10/23/23 07:34 36.8 C 52 L 16 116/76 97 Room Air PG Care Time/CCT Total # of Minutes Spent Total Time Spent with Patient: Total time spent is greater than 50% in coordination of care (as documented) at patient's floor/unit and/or counseling patient: Coding Diagnoses Spondylolysis M43.00 Hepatic lesion K76.9 Intractable back pain M54.9 Rectal abnormality K62.9 Abnormal urinalysis R82.90
--- NOTE | 2023-10-23 11:00 | Discharge Summary ---
Date of Service October 23, 2023 Admission HPI Per Admitting Provider Alexander Vela is a 63 year old male who presents to the ER with lower back pain. He reports 2 weeks of slowly worsening lower back pain. He was seen by his PCP on October 14 and prescribed Flexeril and Naproxen. He reports the naproxen isn't helping much and the Flexeril makes him tired. The pain comes in waves with intense muscles spasms of his lower back. No radiation down his leg. No new numbness in his lower extremities. No significant trauma although he has been moving boxes. Previously it was intermittent with some respite but since coming out of the shower today it has been constant. He has had some relief from pain medications given in the ER but every time he moves he gets the pain back. Pain currently 5-6/10 but worse when he moves. CT was concerning for possible metastatic disease with indeterminate liver lesions. He is being followed by urology for elevated PSA with prior biopsies in 2021 negative for malignancy. Also of concern is mild rectal wall thickening however he denies any melena, hematochezia, rectal pain/fullness, weight loss or change in bowels. He had a colonoscopy in 2021 with only benign polyps found at that time. Urine analysis is positive for leucocyte esterase however he denies any urinary symptoms. Admission Exam Per Admitting Provider Constitutional: WD/WN, vitals as above ENMT: external ear and nose normal, oropharynx normal Respiratory: normal respiratory effort, lungs clear to auscultation Cardiovascular: RRR, no murmur, no edema Gastrointestinal (Abdomen): normal bowel sounds, soft, nontender, no hepatosplenomegaly Musculoskeletal: central and right paraspinal pain on palpation of lower lumbar spine hip flexion, ankle dorsi/plantarflexion intact, no sensory deficit of lower extremities Skin: no rashes, warm and dry Neurologic: moves all extremities and awake; not confused Psychiatric: A+Ox3, euthymic affect Principal Diagnosis Intractable Back Pain, Lumbar Stenosis, Hemangioma Discharge Exam General: 63yo male sitting up in bed, NAD, reports feeling better than admission and wanting to go, reading paper Head atraumatic, normocephalic, trachea midline, mm improved Resp: even/unlabored, no w/c/r, on room air CV: NSR/evelia, no significant m/r/g, no pitting edema, pulses present GI: +BS, slight distension but soft/nontender MSK/Neuro: nonfocal, strength equal bilaterally in bed (reports difficulty getting from sitting to standing position) Psych: AOx3, cooperative with exam Discharge Data Allergies Allergy/AdvReac Type Severity Reaction Status Date / Time No Known Allergies Allergy Verified 10/21/23 09:53 Consultations 10/21/23 13:48 ED Decision to Admit Stat 10/21/23 14:43 Consult Oncology Routine Ordered Studies Abdomen/Pelvis CT 10/21/23 09:[address] WITHOUT CONTRAST HISTORY: Acute right-sided back pain R low back pain TECHNIQUE: Multiaxial CT images of the abdomen and pelvis were performed without contrast. A dose lowering technique was utilized adhering to the principles of ALARA. COMPARISON STUDY: Lumbar spine CT same day FINDINGS: Clear lung bases with mild bibasilar mucous plugging. No free air. The unenhanced spleen, mildly atrophic pancreas and adrenal glands are unremarkable. The gallbladder is within normal limits. Indeterminate hypodense left hepatic lobe mass on image 21 series 2 measures 7.5 cm. There is an additional 12 mm lesion of the right hepatic lobe on image 28. Bilateral renal sinus cysts. There is an exophytic parenchymal cyst of the superior pole right kidney measuring 4.9 cm. Bilateral perinephric stranding. Distended urinary bladder with mild nonspecific circumferential wall thickening. Prostatomegaly with indeterminate focus of decreased attenuation within the right base of the prostate (339 measuring 1.3 cm. No abdominal aortic aneurysm. Borderline enlarged periaortic and iliac chain lymph nodes measure up to 1 cm. Perirectal and presacral lymph nodes including a 1.3 x 1.0 cm lymph node on image 310. There is no bowel obstruction. There is wall thickening within the rectum with partial distention on image 343 series 3. There is mild colonic fecal retention. Normal appendix. Tiny fat filled umbilical hernia with diastases of 8 mm. No acute fracture. No destructive bone lesion identified. Chronic L5 pars defects. IMPRESSION: 1. No bowel obstruction or pneumoperitoneum. 2. Mild wall thickening with partial distention of the rectum could be correlated with colonoscopy to exclude a mucosal lesion. 3. There are suspicious borderline enlarged retroperitoneal, iliac chain and perirectal lymph nodes. Follow-up recommended in order to exclude lymphatic metastasis. 4. Prostamegaly with evidence of chronic outlet obstruction. Correlate with PSA level. 5. Indeterminate hepatic lesions measure up to 7.5 cm within the left hepatic lobe. ACT 112: Negative or not required by law. The above report was generated using voice recognition software. It may contain grammatical, syntax or spelling errors. Electronically signed by: Roberto Santiago M.D. 10/21/2023 12:[address] 10/21/23 09:47 CT lumbar spine wo con CLINICAL HISTORY: Right lower back pain. COMPARISON STUDY: No previous studies for comparison. TECHNIQUE: Axial images of the lumbar spine were obtained without IV contrast. Sagittal and coronal reconstructions were viewed. Automated exposure control was utilized for the study. A dose lowering technique was utilized adhering to the principles of ALARA. FINDINGS: Please note that the CT of the abdomen and pelvis will be reported separately. For purposes of numbering on this exam, the L5-S1 disc space is assigned to axial image 221 of 245. Vertebral body heights are maintained. There is slight anterolisthesis L5 on S1 due to bilateral L5 pars defects. There are no acute lumbar spine fractures. No osseous lesions are present. Facet joints are intact. Paravertebral soft tissues are unremarkable by CT. Bilateral renal parapelvic cysts are incidentally noted. There is a right renal cortical cyst. There is moderate disc space narrowing at L1-L2. There is moderate multilevel facet arthrosis. Central canal neural foramen are suboptimally assessed given CT technique. No evidence for severe central canal stenosis. IMPRESSION: 1. No lumbar spine fractures. 2. Moderate multilevel degenerative changes within the lumbar spine. Suboptimal evaluation of central canal and neural foramen given CT technique. 3. Slight anterolisthesis of L5 on S1 due to bilateral L5 pars defects. ACT 112: Negative or not required by law. Electronically signed by: Jono Keenan M.D. 10/21/2023 11:09 AM Lumbar Spine MRI 10/21/23 14:09 Exam(s): MRI L SPINE W/WO Contrast IV Amt: 10ml gadavist EXAM: MR Lumbar Spine Without and With Intravenous Contrast CLINICAL HISTORY: Reason for exam: ?metastatic disease. TECHNIQUE: Magnetic resonance images of the lumbar spine without and with intravenous contrast in multiple planes. CONTRAST: Patient received 10ml gadavist of IV contrast COMPARISON: CT lumbar spine 10/21/2023 FINDINGS: Vertebrae: No suspicious lesion. No acute fracture. Endplate degenerative related changes most pronounced at L1-L2. Spinal cord: Normal signal. No abnormal enhancement. Soft tissues: Unremarkable. DISCS/SPINAL CANAL/NEURAL FORAMINA: L1-L2: Disc desiccation and diffuse disc bulge. No significant canal stenosis. No significant foraminal stenosis.. L2-L3: Trace diffuse disc bulge. No spinal canal stenosis. Mild foraminal stenosis on the right. None on the left. L3-L4: Trace diffuse disc bulge. No canal stenosis. Mild foraminal stenosis on the right. None on the left. L4-L5: Unremarkable. No significant disc disease. No stenosis. L5-S1: Pars defects at L5. Trace anterolisthesis at L5-S1. No spinal canal stenosis. Mild foraminal stenosis on the left. None on the right. IMPRESSION: Mild degenerative spondylosis. No acute abnormality or evidence of metastatic disease. Electronically signed by: Reji Hooks MD 10/21/23 20:15 PM Abdomen MRI 10/22/23 00:00 MR abdomen wo/w con HISTORY: Follow-up liver lesions. liver lesion/protocol, requested by Amish Ahn TECHNIQUE: Multiplanar multisequence MRI of the abdomen was performed both before and after the intravenous administration of 10 cc of Eovist contrast to evaluate the liver. COMPARISON STUDY: Abdomen and pelvis CT 10/21/2023. FINDINGS: The lung bases are clear. The visualized loops of bowel show no wall thickening or obstruction. Normal caliber abdominal aorta. No retroperitoneal lymphadenopathy. The main portal vein is patent. The gallbladder, pancreas, spleen, and adrenal glands are unremarkable. Multiple bilateral peripelvic renal cysts are again noted. There are few bilateral renal cysts with the largest on the right measuring 4.9 cm. No hydronephrosis. Mild bilateral perinephric edema, unchanged. This is likely chronic. No suspicious osseous lesions. Normal caliber common bile duct. No filling defects within the common bile duct. There is a 7.6 x 6.2 cm T2 hyperintense, T1 hypointense lesion within the left hepatic lobe. This demonstrates discontinuous peripheral nodular enhancement with delayed filling. Therefore, this is consistent with a hemangioma. There is also an 11 mm T2 hyperintense, T1 hypointense lesion within segment 7 of the liver. This demonstrates hypervascular enhancement with complete washout on the 20 minute delayed sequences. This is difficult to characterize due to its small size but favors a flash filling hemangioma. No additional hepatic lesions identified. IMPRESSION: 1. The 7.6 x 6.2 cm T2 hyperintense lesion within the left hepatic lobe is consistent with a hemangioma. 2. There is an additional 11 mm T2 hyperintense lesion within the right hepatic lobe. This is difficult to characterize due to its small size but may represent a flash filling hemangioma. One year follow-up can be performed to ensure stability. 3. Additional findings as described above. ACT 112: Negative or not required by law. Electronically signed by: Omega Church M.D. 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 No lumbar spine fractures. 2. Moderate multilevel degenerative changes within the lumbar spine. Suboptimal evaluation of central canal and neural foramen given CT technique. 3. Slight anterolisthesis of L5 on S1 due to bilateral L5 pars defects. Urine cx WITHOUT growth, Lyme screen negative MRI lumbar spine noting Mild degenerative spondylosis. No acute abnormality or evidence of metastatic disease. Does notes trace diffuse disc bulge on the right (none on the left) Patient HAS had lumbar spine injection many years ago which he reported helped. On admission, provided valvium w/ relief. Utilized tylenol/ibuprogen/oxycodone prn for pain and consulted orthotics for brace which he reports improved pain. PT/OT cleared for return home. Discussed w/ patient short rx for Valium to take as needed, avoid heavy lifting/twisting and f/u [facility] and pain management for consideration for injections/referral to Dr Miranda if ongoing/worsening pain. No red flag symptoms and discussed s/sx to return if occurs. Patient feeling 60% better and wanting to go home. Could also consider course of PO steroids in follow up but was improving without and was not provided. To increase ambulation/activity slowly as tolerated, f/u PCP this upcoming week for follow up care. Of note, did obtain MRI liver protocol as outlined below regarding hepatic lesion, which was determined to be larger hemangioma and heme/onc consulted and will need ongoing surveillance/follow up given his lymph nodes. CEA level not elevated, has had c-scope routine 3-5yr basis, last one with Dr berry in 2021. Rec f/u c-scope given rectal thickening (patient denies any alternating bowel habits/issues moving bowels/unexplained weight loss/etc) PSA was elevated but less than prior and routine f/u with Urology for screening/biopsies which have been negative in the past (2) Hepatic lesion: On CTAP on admission. INR not elevated on check MRI liver protocol as above: "7.6 x 6.2 cm T2 hyperintense lesion within the left hepatic lobe is consistent with a hemangioma. There is an additional 11 mm T2 hyperintense lesion within the right hepatic lobe. This is difficult to characterize due to its small size but may represent a flash filling hemangioma. One year follow-up can be performed to ensure stability." Dr Robison from hematology/oncology consulted -- will req outpatient follow up as above (3) Intractable back pain: IMPROVED continue brace/activity restriction and muscle spasm Outpt pain management for possible injection Urine cx NO GROWTH on final (4) Rectal abnormality: "Mild wall thickening with partial distention of the rectum on CT". CEA not elevated. Patient denies any worrisome sx at this time Eval liver lesion as above with hemangioma Outpt GI f/u for repeat c-scope as above (5) Abnormal urinalysis: Asymptomatic, URINE CX NEG Plan VTE Prophylaxis - Lovenox 40mg SQ daily while inpatient Discharged home with close outpatient follow up with specialists and [facility]/pain management Total Time Total Time Spent Total Time Spent (In Minutes): 50 Discharge Plan Discharge Items Patient Disposition: Home - Self-Care Reason For Visit: INTRACTABLE BACK PAIN / SPASM Discharge Diagnosis: Intractable Back Pain, Spasm, Spondylosis Condition on Discharge: Good Goals: You have been hospitalized for an acute medical problem. During your stay at [facility], we have made an effort to correct the problem that brought you to the hospital while keeping you as comfortable as possible. Medications were used to bring your condition under control and your discharge instructions will include directions for any medications you should take after leaving the hospital. Please make sure you see your Primary Care Provider as part of your follow up plan. Activity: As commented below Lifting Comment: NO more than 10-15lb, avoid twisting/heavy lifting Non-emergency contact: Primary Care Provider, Manager Of Tax, Oncologist and Urologist Call non-emergency contact if: you have any medication questions, your symptoms worsen, your pain is not controlled, your pain is worsening, your pain is unusual for you and you have a fever Follow-up/Referrals: Rohan ColindresDO Genny [Physician] - Jann Thomas DO [Primary Care Provider] - 11/04/23 3:00 pm Ant Plunkett MD [Physician] - Jasvir Robison MD [Physician] - Diet: Heart Healthy Addtl Attending Provider Instructions: You have been hospitalized for back pain. Initially concerns for potential liver cancer however MRI showed HEMANGIOMA. Dr Robison from hematology/oncology was consulted and you will need follow up for surveillance and additional follow up for enlarged lymph nodes. CEA level (marker for colon cancer) was checked and NOT elevated but you should have follow up with GI for repeat screening given thickening on the cat scan however you have had routine screening which is reassuring. PSA level was elevated but less than prior and should have follow up with urology about repeat biopsy. You are being sent with short prescription of valium for spasm. No driving while on this as discussed. MRI of the lumbar spine does show some slippage of discs which hopefully can be managed with conservative measures with pain control and brace which has been provided. Please avoid heavy lifting/twisting that can worsen these issues. You should have follow up with [facility] pain management for consideration for repeat lumbar spine injection as this was helpful in the past. Dr Miranda is also at that office if you develop progression/worsening and/or need for surgical intervention. You do have some small disc bulges and if you continue with heavy lifting/etc can make this worse. The number for [facility] is [phone]. Please monitor for any loss of bowel/bladder function or numbness/tingling down your legs and would be sign to return to ER [facility]O. Please return to ER if any worsening symptoms/uncontrolled pain or for any other symptoms concerning for you. It has been a pleasure being a part of the medical team providing for you while you have beein the hospital. Take care! Pending Studies at Discharge: No Stand-Alone Forms: [employer], Smoking Cessation Medications and DC Order Prescriptions: New diazepam [Valium] 2 mg tablet 2 mg PO DAILY PRN (Reason: pain or muscle pain) Qty: 7 0RF Continued naproxen 500 mg tablet 500 mg PO BID PRN (Reason: pain) Qty: 14 1RF Rx Instructions: filled 10/05/23 for 7 day supply cyclobenzaprine 5 mg tablet 5 - 10 mg PO HS Qty: 10 0RF Rx Instructions: Filled 10/15/23 for 5 day supply Discharge Orders: Discharge Order (Routine); Ordered 10/23/23 Ordered By: Vee Coleman/Other Patient Handouts: Diazepam Oral Tablet Admission Data Admit Date/Time: 10/21/23 15:12 Attending Provider: Angie Lubin Admit Provider: Vik Thompson Primary Care Provider: Jann Thomas Other Providers: Vik Thompson; Jasvir Robison Other Interventions: Discharge Summary Assessment (RN) Last Done: 10/23/23 11:20 Coding Level of Care Code 71044 INP/OBS DISCH >30 MIN Diagnoses Spondylolysis M43.00 Hepatic lesion K76.9 Intractable back pain M54.9 Rectal abnormality K62.9 Abnormal urinalysis R82.90
== END 2023-10-23 12:08 | disposition home or self-care (01) ==
LOC: MERGE 09:07 → 3W 09:07 → ED 09:07 → SUATTDRO 15:12 → 3W 16:24